=== PATIENT | male | born 1955 | race Caucasian/White ===

== ENCOUNTER 2022-04-25 18:56 | Inpatient (IN) ==
[2022-04-25 20:15] LABS: Basophils # (auto) 0.02 K/uL (0-0.2); Basophils % (auto) 0.3 %; Eosinophils # (auto) 0.22 K/uL (0-0.50); Hematocrit (blood only) 45.1 % (40.1-51.0); Hemoglobin 15.6 g/dl (14.0-18.0); Immature Granulocytes # (auto) 0.01 K/uL (0.00-0.02); Immature Granulocytes % (auto) 0.1 %; Lymphocytes # (auto) 1.98 K/uL (1.2-3.4); Lymphocytes % (auto) 27.2 %; Mean Corpuscular Hemoglobin 34.6 pg (25.0-34.0); Mean Corpuscular Hgb Conc 34.6 g/dL (32.0-36.0); Mean Platelet Volume 10.5 fL (9.4-12.4); Monocytes # (auto) 0.92 K/uL (0.24-0.82); Monocytes % (auto) 12.6 %; Neutrophils # (auto) 4.13 K/uL (1.4-6.5); Neutrophils % (auto) 56.8 %; Platelet Count 201 K/uL (130-400); RDW Coefficient of Variation 12.2 % (11.5-14.5); RDW Standard Deviation 45.4 fL (36.4-46.3); Red Blood Count 4.51 M/uL (4.63-6.08); White Blood Count 7.28 K/ul (4.8-10.8)
[2022-04-25] MEDS ORDERED: levETIRAcetam 1,000 MG in 0.9 % SODIUM CHLORIDE 100 ML IV STA (20:16)
--- NOTE | 2022-04-25 20:20 | CT Scan Report ---
CT OF THE HEAD WITHOUT CONTRAST CLINICAL HISTORY: recurrent seizures COMPARISON STUDY: No previous studies for comparison. CT DOSE: 537.48 mGy.cm TECHNIQUE: Helical axial images of the head were obtained without IV contrast. Automated exposure con trol was utilized for the study. A dose lowering technique was utilized adhering to the principles o f ALARA. FINDINGS: No acute intracranial hemorrhage, midline shift or mass effect is present. The ventricular system is unremarkable. The basal cisterns are patent. No extra-axial collections are present. There are no findings to suggest acute dural sinus thrombosis or acute territorial infarct. No significant calvarial abnormalities are present. Small amount of secretions within visualized portions of the rig ht maxillary sinus. There is moderate ethmoid sinus mucosal thickening. IMPRESSION: No acute intracranial findings. ACT 112: Negative or not required by law. Electronically signed by: Bennie Haywood M.D. 04/25/2022 8:17 PM
[2022-04-25] MEDS ORDERED: LORazepam 2 MG/1 ML VIAL ONE (20:21)
--- NOTE | 2022-04-25 20:25 | Emergency Department Note ---
History of Present Illness General Chief complaint: Seizure Stated complaint: SEIZURE Time Seen by Provider: 04/25/22 19:09 Source: patient Mode of arrival: EMS Limitations: no limitations History of Present Illness Provider complaint: Seizure This is a 67-year-old male presents emergency department due to a seizure today. Patient states he does have a history of seizures and does take Keppra daily. He states he was first diagnosed 2 years ago. Patient states he did have a brief seizure yesterday, but otherwise felt well. He states he went home last night and took an Ambien, his gave him a small amount of Xanax, however he had difficulty sleeping and estimates he only slept 4-1/2 hours. He states t minh he otherwise felt well, did a lot of walking outside. He states he did have a couple of beers with friends. He states then this evening he had a recurrent seizure. He states he does get a strange feeling that something is about to happen. He denies trauma or injury. He denies any recent illness or fevers. Pt seen during a time of high acuity and national emergency pandemic while wearing PPE. Home Medications Medication Instructions Recorded Confirmed Type aspirin 81 mg capsule 162 mg PO DAILY 04/25/22 04/25/22 History cyanocobalamin (vitamin B-12) 100 0 mcg PO DAILY 04/25/22 04/25/22 History mcg tablet (Vitamin B-12) duloxetine 60 mg capsule,delayed 60 mg PO DAILY 04/25/22 04/25/22 History release (Cymbalta) ezetimibe 10 mg tablet (Zetia) 10 mg PO DAILY 04/25/22 04/25/22 History levetiracetam 750 mg tablet 750 mg PO BID 04/25/22 04/25/22 History (Keppra) metoprolol tartrate 50 mg tablet 50 mg PO BID 04/25/22 04/25/22 History (Lopressor) multivitamin 1 tab PO DAILY 04/25/22 04/25/22 History rosuvastatin 20 mg tablet (Crestor) 20 mg PO DAILY 04/25/22 04/25/22 History vitamin B complex 1 tab PO DAILY 04/25/22 04/25/22 History Allergies Allergy/AdvReac Type Severity Reaction Status Date / Time No Known Allergies Allergy Unverified 04/25/22 23:50 Past Med/Surg History Medical History Alcohol use disorder Borderline results on serologic testing for Lyme disease Seizure disorder Social History Smoking Status: Current every day smoker Tobacco Type: Cigarettes Cigarettes Per Day: a couple; Hx Alcohol Use: Yes Alcohol type: hard liquor Hx Substance Use: No Preferred Language: Serbian Communication Ability: Effective Alligator Hunter Required: No Beliefs That Will Affect Care: None Current Living Situation: Spouse Feels Safe at Home: Yes Assistive Devices: Glasses Review of Systems A total of 10 systems reviewed and were otherwise negative All systems reviewed & are unremarkable except as noted in HPI & below Physical Exam Vital Signs Vital Signs - 24 hr 04/25/22 19:08 04/25/22 19:11 04/25/22 19:30 Temperature 36.9 C Temperature Source Oral Pulse Rate 109 H 105 H Pulse Rate [Apical] Pulse Rate from SpO2 Sensor 106 H Pulse Rhythm Regular Pulse Rhythm [Apical] Pulse Strength Normal Pulse Strength [Apical] Respiratory Rate 19 34 H Respiratory Effort / Characteristics Non-Labored Respiratory Depth Normal Respiratory Pattern Regular Blood Pressure 158/108 H 162/104 H Blood Pressure [Right Arm] Blood Pressure Mean 124 123 Blood Pressure Mean [Right Arm] Blood Pressure Position Sitting Blood Pressure Position [Right Arm] Pulse Oximetry 97 97 Oxygen Delivery Method Room Air Sepsis Recent Fever Within 48 Hours No Sepsis New/Unexplained Change in Mental Status No Sepsis Action Taken by Nursing No Action Required 04/25/22 19:30 04/25/22 20:07 04/25/22 20:15 Temperature Temperature Source Pulse Rate 113 H 98 H Pulse Rate [Apical] Pulse Rate from SpO2 Sensor 112 H 89 98 H Pulse Rhythm Pulse Rhythm [Apical] Pulse Strength Pulse Strength [Apical] Respiratory Rate 16 16 Respiratory Effort / Characteristics Respiratory Depth Respiratory Pattern Blood Pressure Blood Pressure [Right Arm] Blood Pressure Mean Blood Pressure Mean [Right Arm] Blood Pressure Position Blood Pressure Position [Right Arm] Pulse Oximetry 99 98 100 Oxygen Delivery Method Sepsis Recent Fever Within 48 Hours Sepsis New/Unexplained Change in Mental Status Sepsis Action Taken by Nursing 04/25/22 20:15 04/25/22 20:30 04/25/22 20:30 Temperature Temperature Source Pulse Rate 94 H Pulse Rate [Apical] Pulse Rate from SpO2 Sensor 93 H Pulse Rhythm Pulse Rhythm [Apical] Pulse Strength Pulse Strength [Apical] Respiratory Rate 13 Respiratory Effort / Characteristics Respiratory Depth Respiratory Pattern Blood Pressure 152/92 H 142/87 H Blood Pressure [Right Arm] Blood Pressure Mean 112 105 Blood Pressure Mean [Right Arm] Blood Pressure Position Blood Pressure Position [Right Arm] Pulse Oximetry 94 Oxygen Delivery Method Sepsis Recent Fever Within 48 Hours Sepsis New/Unexplained Change in Mental Status Sepsis Action Taken by Nursing 04/25/22 19:07 04/25/22 19:07 04/25/22 21:00 Temperature Temperature Source Pulse Rate Pulse Rate [Apical] 87 Pulse Rate from SpO2 Sensor Pulse Rhythm Pulse Rhythm [Apical] Regular Pulse Strength Pulse Strength [Apical] Normal Respiratory Rate 22 Respiratory Effort / Characteristics Non-Labored Respiratory Depth Normal Respiratory Pattern Regular Blood Pressure 127/73 Blood Pressure [Right Arm] 127/73 Blood Pressure Mean 91 Blood Pressure Mean [Right Arm] 91 Blood Pressure Position Blood Pressure Position [Right Arm] Lying Pulse Oximetry 95 95 Oxygen Delivery Method Room Air Room Air Sepsis Recent Fever Within 48 Hours Sepsis New/Unexplained Change in Mental Status Sepsis Action Taken by Nursing 04/25/22 21:00 04/25/22 21:30 04/25/22 21:30 Temperature Temperature Source Pulse Rate 91 H 86 Pulse Rate [Apical] Pulse Rate from SpO2 Sensor 91 H 88 Pulse Rhythm Pulse Rhythm [Apical] Pulse Strength Pulse Strength [Apical] Respiratory Rate 14 24 Respiratory Effort / Characteristics Respiratory Depth Respiratory Pattern Blood Pressure 129/77 Blood Pressure [Right Arm] Blood Pressure Mean 94 Blood Pressure Mean [Right Arm] Blood Pressure Position Blood Pressure Position [Right Arm] Pulse Oximetry 95 94 Oxygen Delivery Method Sepsis Recent Fever Within 48 Hours Sepsis New/Unexplained Change in Mental Status Sepsis Action Taken by Nursing 04/25/22 22:00 04/25/22 22:00 04/25/22 22:30 Temperature Temperature Source Pulse Rate 81 Pulse Rate [Apical] Pulse Rate from SpO2 Sensor 80 Pulse Rhythm Pulse Rhythm [Apical] Pulse Strength Pulse Strength [Apical] Respiratory Rate 19 Respiratory Effort / Characteristics Respiratory Depth Respiratory Pattern Blood Pressure 119/75 137/69 Blood Pressure [Right Arm] Blood Pressure Mean 89 91 Blood Pressure Mean [Right Arm] Blood Pressure Position Blood Pressure Position [Right Arm] Pulse Oximetry 94 Oxygen Delivery Method Sepsis Recent Fever Within 48 Hours Sepsis New/Unexplained Change in Mental Status Sepsis Action Taken by Nursing 04/25/22 22:30 04/25/22 23:00 04/25/22 23:00 Temperature Temperature Source Pulse Rate 82 86 Pulse Rate [Apical] Pulse Rate from SpO2 Sensor 82 86 Pulse Rhythm Pulse Rhythm [Apical] Pulse Strength Pulse Strength [Apical] Respiratory Rate 17 20 Respiratory Effort / Characteristics Respiratory Depth Respiratory Pattern Blood Pressure 148/88 H Blood Pressure [Right Arm] Blood Pressure Mean 108 Blood Pressure Mean [Right Arm] Blood Pressure Position Blood Pressure Position [Right Arm] Pulse Oximetry 95 98 Oxygen Delivery Method Sepsis Recent Fever Within 48 Hours Sepsis New/Unexplained Change in Mental Status Sepsis Action Taken by Nursing 04/25/22 23:30 04/25/22 23:30 04/26/22 00:00 Temperature Temperature Source Pulse Rate 75 Pulse Rate [Apical] Pulse Rate from SpO2 Sensor 75 Pulse Rhythm Pulse Rhythm [Apical] Pulse Strength Pulse Strength [Apical] Respiratory Rate 19 Respiratory Effort / Characteristics Respiratory Depth Respiratory Pattern Blood Pressure 127/83 144/75 H Blood Pressure [Right Arm] Blood Pressure Mean 97 98 Blood Pressure Mean [Right Arm] Blood Pressure Position Blood Pressure Position [Right Arm] Pulse Oximetry 93 Oxygen Delivery Method Sepsis Recent Fever Within 48 Hours Sepsis New/Unexplained Change in Mental Status Sepsis Action Taken by Nursing 04/26/22 00:00 04/26/22 00:30 04/26/22 00:30 Temperature Temperature Source Pulse Rate 75 74 Pulse Rate [Apical] Pulse Rate from SpO2 Sensor 75 74 Pulse Rhythm Pulse Rhythm [Apical] Pulse Strength Pulse Strength [Apical] Respiratory Rate 16 15 Respiratory Effort / Characteristics Respiratory Depth Respiratory Pattern Blood Pressure 115/76 Blood Pressure [Right Arm] Blood Pressure Mean 89 Blood Pressure Mean [Right Arm] Blood Pressure Position Blood Pressure Position [Right Arm] Pulse Oximetry 96 93 Oxygen Delivery Method Sepsis Recent Fever Within 48 Hours Sepsis New/Unexplained Change in Mental Status Sepsis Action Taken by Nursing GENERAL: alert, well appearing, well nourished, no distress, non-toxic EYE EXAM: normal conjunctiva, PERRL and EOM's grossly intact OROPHARYNX: no exudate, no erythema, lips, buccal mucosa, and tongue normal and mucous membranes are moist NECK: supple, no nuchal rigidity, no adenopathy, non-tender LUNGS: Clear to auscultation. Normal chest wall mechanics, no w/r/r HEART: no murmurs, S1 normal and S2 normal ABDOMEN: abdomen soft, non-tender, normo-active bowel sounds, no masses, no rebound or guarding. BACK: Back is symmetrical on inspection and there is no deformity, no midline tenderness, no CVA tenderness. SKIN: no rashes and no bruising UPPER EXTREMITIES: upper extremities are grossly normal. FROM, nml pulses b/l. LOWER EXTREMITIES: No pitting edema. FROM, nml pulses b/l. NEURO EXAM: Normal sensorium, cranial nerves II-XII grossly intact, normal speech, no gross weakness of arms, no gross weakness of legs. Gross sensation intact. Course Course 2020: Notified by nursing staff pt now having a seizure. By the time I entered the room seizure activity had stopped and pt was slowly beginning to respond. No post ictal period. Ativan ordered and given. 2131: Pt updated. VS stable. Patient and admit patient has had prior issues with alcohol abuse and has previously attended rehab. He had never had seizures related to alcohol withdrawal previously. No history of DTs. Administered Medications Doxycycline Hyclate (Doxycycline Hyclate 100 Mg Cap) 100 mg PO BID MARCELLUS Stop: 05/06/22 01:50 Last Admin: 04/26/22 20:15 Dose: 100 mg Documented By: Admin: 04/26/22 08:58 Dose: 100 mg Documented By: [id number] Admin: 04/26/22 03:04 Dose: 100 mg Documented By: JODY Enoxaparin Sodium (Enoxaparin Inj 40 Mg/0.4 Ml Syr) 40 mg SQ Q24H MARCELLUS Stop: 05/26/22 08:59 Last Admin: 04/26/22 08:58 Dose: 40 mg Documented By: [id number] Folic Acid (Folic Acid 1 Mg Tab) 1 mg PO QAM MARCELLUS Stop: 05/26/22 01:50 Last Admin: 04/26/22 08:58 Dose: 1 mg Documented By: [id number] Admin: 04/26/22 03:03 Dose: 1 mg Documented By: JODY Levetiracetam (Levetiracetam 500 Mg Tab) 1,000 mg PO BID MARCELLUS Stop: 05/26/22 08:59 Last Admin: 04/26/22 20:15 Dose: 1,000 mg Documented By: Admin: 04/26/22 08:58 Dose: 1,000 mg Documented By: [id number] Metoprolol Tartrate (Metoprolol Tartrate 50 Mg Tab) 50 mg PO BID MARCELLUS Stop: 05/26/22 12:14 Last Admin: 04/26/22 20:15 Dose: 50 mg Documented By: Admin: 04/26/22 13:09 Dose: 50 mg Documented By: [id number] Thiamine HCl (Thiamine Hcl 100 Mg Tab) 100 mg PO QAM MARCELLUS Stop: 05/26/22 01:50 Last Admin: 04/26/22 08:58 Dose: 100 mg Documented By: [id number] Admin: 04/26/22 03:05 Dose: 100 mg Documented By: JODY Discontinued Medications Levetiracetam 1,000 mg/ Sodium (Chloride) 110 mls @ 440 mls/hr IV NOW STA Stop: 04/25/22 20:30 Last Infusion: 04/25/22 21:22 Dose: 0 mls/hr Documented By: Admin: 04/25/22 20:57 Dose: 440 mls/hr Documented By: GLORIA Multivitamins 10 ml/ Thiamine HCl 100 mg/ Folic Acid 1 mg/Sodium Chloride 1,011.2 mls @ 500 mls/hr IV .Q2H2M ONE Stop: 04/26/22 04:16 Last Infusion: 04/26/22 05:04 Dose: 0 mls/hr Documented By: Admin: 04/26/22 03:02 Dose: 500 mls/hr Documented By: JODY Lactated Ringer's (Lr) 1,000 mls @ 80 mls/hr IV .[id number] MARCELLUS Stop: 04/26/22 16:44 Last Infusion: 04/26/22 18:05 Dose: 0 mls/hr Documented By: [id number] Admin: 04/26/22 05:34 Dose: 80 mls/hr Documented By: JODY Lorazepam (Lorazepam 2 Mg/1 Ml Vial) Confirm Administered Dose 2 mg .ROUTE .STK- MED ONE Stop: 04/25/22 20:22 Last Admin: 04/25/22 20:23 Dose: 1 mg Documented By: GLORIA Metoprolol Tartrate (Metoprolol Tartrate 50 Mg Tab) 50 mg PO NOW STA Stop: 04/25/22 23:08 Last Admin: 04/25/22 23:37 Dose: 50 mg Documented By: GENEVIEVE Medical Decision Making Differential Diagnosis Differential diagnosis includes etiologies such as infection, hypoglycemia, neymar ctrolyte abnormalities, cardiac sources, intracerebral event, trauma, toxicologic, neurologic, as well as others were entertained. Medical Records Attestation: I reviewed the patient's medical records. Home Medications Current Medication List: was personally reviewed by me Laboratory Data Attestation: I reviewed the patient's lab results. Result diagrams: 04/26/22 05:50 04/26/22 05:50 Lab Results 04/25/22 04/25/22 04/25/22 Range/Units 19:03 19:25 19:25 WBC 7.28 (4.8-10.8) K/ul RBC 4.51 L (4.63-6.08) M/uL Hgb 15.6 (14.0-18.0) g/dl Hct 45.1 (40.1-51.0) % MCV 100.0 (80.0-100.0) fL MCH 34.6 H (25.0-34.0) pg MCHC 34.6 (32.0-36.0) g/dL RDW Std Deviation 45.4 (36.4-46.3) fL RDW Coeff of Eladia 12.2 (11.5-14.5) % Plt Count 201 (130-400) K/uL MPV 10.5 (9.4-12.4) fL Immature Gran % (Auto) 0.1 % Neut % (Auto) 56.8 % Lymph % (Auto) 27.2 % [place] % (Auto) 12.6 % Eos % (Auto) 3.0 % Baso % (Auto) 0.3 % Neut # (Auto) 4.13 (1.4-6.5) K/uL Lymph # (Auto) 1.98 (1.2-3.4) K/uL [place] # (Auto) 0.92 H (0.24-0.82) K/uL Eos # (Auto) 0.22 (0-0.50) K/uL Baso # (Auto) 0.02 (0-0.2) K/uL Immature Gran # (Auto) 0.01 (0.00-0.02) K/uL Sodium 137 (136-145) mmol/L Potassium 4.4 (3.5-5.1) mmol/L Chloride 106 (98-107) mmol/L Carbon Dioxide 20 L (21-32) mmol/L Anion Gap 11 (3-11) BUN 17 (6-23) mg/dl Creatinine 1.03 (0.6-1.4) mg/dl Est Cr Clr Drug Dosing 77.5 ml/min Est GFR ( Amer) 87.9 ml/min Est GFR (Non-Af Amer) 75.9 ml/min BUN/Creatinine Ratio 16.5 (10-20) Glucose 88 (70-99(Fasting)) mg/dl POC Glucose 98 (70-99) mg/dl Calcium 10.0 (8.5-10.1) mg/dl Magnesium 2.2 (1.7-2.4) mg/dl Total Bilirubin 0.5 (0.2-1.0) mg/dl AST 42 H (13-39) U/L ALT 47 (7-52) U/L Alkaline Phosphatase 79 (34-104) U/L Troponin I High Sens 6.2 (0-20) pg/ml Total Protein 7.9 (6.0-8.3) gm/dl Albumin 4.8 (3.4-5.0) gm/dl Globulin 3.1 (2.5-4.0) gm/dl Albumin/Globulin Ratio 1.5 (0.9-2) Lipase 73 (11-82) U/L TSH (0.300-4.500) uIu/ml Ethyl Alcohol mg/dL (<10.0) mg/dl Lyme Disease IgG Ab (Negative) Lyme Disease IgM Ab (Negative) 04/25/22 04/25/22 04/25/22 Range/Units 19:25 19:25 19:25 WBC (4.8-10.8) K/ul RBC (4.63-6.08) M/uL Hgb (14.0-18.0) g/dl Hct (40.1-51.0) % MCV (80.0-100.0) fL MCH (25.0-34.0) pg MCHC (32.0-36.0) g/dL RDW Std Deviation (36.4-46.3) fL RDW Coeff of Eladia (11.5-14.5) % Plt Count (130-400) K/uL MPV (9.4-12.4) fL Immature Gran % (Auto) % Neut % (Auto) % Lymph % (Auto) % [place] % (Auto) % Eos % (Auto) % Baso % (Auto) % Neut # (Auto) (1.4-6.5) K/uL Lymph # (Auto) (1.2-3.4) K/uL [place] # (Auto) (0.24-0.82) K/uL Eos # (Auto) (0-0.50) K/uL Baso # (Auto) (0-0.2) K/uL Immature Gran # (Auto) (0.00-0.02) K/uL Sodium (136-145) mmol/L Potassium (3.5-5.1) mmol/L Chloride (98-107) mmol/L Carbon Dioxide (21-32) mmol/L Anion Gap (3-11) BUN (6-23) mg/dl Creatinine (0.6-1.4) mg/dl Est Cr Clr Drug Dosing ml/min Est GFR ( Amer) ml/min Est GFR (Non-Af Amer) ml/min BUN/Creatinine Ratio (10-20) Glucose (70-99(Fasting)) mg/dl POC Glucose (70-99) mg/dl Calcium (8.5-10.1) mg/dl Magnesium (1.7-2.4) mg/dl Total Bilirubin (0.2-1.0) mg/dl AST (13-39) U/L ALT (7-52) U/L Alkaline Phosphatase (34-104) U/L Troponin I High Sens (0-20) pg/ml Total Protein (6.0-8.3) gm/dl Albumin (3.4-5.0) gm/dl Globulin (2.5-4.0) gm/dl Albumin/Globulin Ratio (0.9-2) Lipase (11-82) U/L TSH 1.317 (0.300-4.500) uIu/ml Ethyl Alcohol mg/dL 11.2 H (<10.0) mg/dl Lyme Disease IgG Ab Negative (Negative) Lyme Disease IgM Ab Equivocal A (Negative) Imaging Data Radiologist's Impression: Head CT 04/25/22 19:44 CT OF THE HEAD WITHOUT CONTRAST CLINICAL HISTORY: recurrent seizures COMPARISON STUDY: No previous studies for comparison. CT DOSE: 537.48 mGy.cm TECHNIQUE: Helical axial images of the head were obtained without IV contrast. Automated exposure control was utilized for the study. A dose lowering technique was utilized adhering to the principles of ALARA. FINDINGS: No acute intracranial hemorrhage, midline shift or mass effect is present. The ventricular system is unremarkable. The basal cisterns are patent. No extra-axial collections are present. There are no findings to suggest acute dural sinus thrombosis or acute territorial infarct. No significant calvarial abnormalities are present. Small amount of secretions within visualized portions of the right maxillary sinus. There is moderate ethmoid sinus mucosal thickening. IMPRESSION: No acute intracranial findings. ACT 112: Negative or not required by law. Electronically signed by: Bennie Haywood M.D. 04/25/2022 8:17 PM ECG Data Attestation: I personally reviewed and interpreted this ECG as follows: Indication: + other Rate (beats per minute): 95 Rhythm: + normal sinus ECG Intervals/blocks: + Normal QRS and + Normal QT ECG [place]: + Normal ECG ST segments: + Normal ST segments MDM Narrative An order was placed for continuous cardiac monitoring. The monitor shows a rate of _75_ with _normal sinus__ rhythm. This is a 67-year-old male who presents due to concern for recurrent seizures yesterday and today. Patient does have a history of seizures and does take Keppra daily, he states he has not missed any doses. Patient did admit to alcohol use today, denies any recent illness, fevers, or trauma. Patient did have a seizure while in the emergency department although by the time I arrived in the room it had resolved, and patient did not appear to be having any typical postictal period. Patient was hemodynamically stable throughout, no ectopy or dysrhythmia noted. Labs reassuring. Patient did admit to poor sleep last night. He is unclear which of several things could have triggered recurrent seizures. Case discussed with hospitalist for additional evaluation and treatment. Do not suspect occult infectious etiology, no significant electrolyte abnormality. Impression & Plan Recurrent seizures, Alcohol use disorder Discharge Plan Visit Data Chief Complaint: Seizure Stated Complaint: SEIZURE ED Provider: Caro Dela Cruz Discharge Problem: Recurrent seizures, Alcohol use disorder Patient Disposition: Admitted As Inpatient Discharge Instructions Interventions: ED Discharge Assessment Last Done: 04/26/22 01:20
[2022-04-25 20:42] LABS: Troponin I High Sensitivity 6.2 pg/ml (0-20)
[2022-04-25 20:47] LABS: Lyme Ab IgG w/WB Rflx Negative (Negative)
[2022-04-25 20:48] LABS: Albumin Globulin Ratio 1.5 (0.9-2); Albumin Level 4.8 gm/dl (3.4-5.0); BUN Creatinine Ratio 16.5 (10-20); Bilirubin,Total 0.5 mg/dl (0.2-1.0); Creatinine Clr Calc Pharmacy 77.5 ml/min; Est GFR (African American) 87.9 ml/min; Est GFR (Non-African American) 75.9 ml/min; Globulin 3.1 gm/dl (2.5-4.0); Magnesium 2.2 mg/dl (1.7-2.4); Potassium 4.4 mmol/L (3.5-5.1); Total Protein 7.9 gm/dl (6.0-8.3)
[2022-04-25 20:58] LABS: Lyme Ab IgM w/WB Rflx Equivocal (Negative)
--- NOTE | 2022-04-25 22:45 | History & Physical Report ---
Date of Service April 25, 2022 Assessment & Plan (1) Alcohol use disorder: Plan: Eze Lyle is a 67-year-old male with a past medical history of seizure disorder diagnosed 2 years ago and alcohol use disorder who presented due to seizures. Seizures With a history of seizure disorder diagnosed 2 years ago Unclear cause for these recent episodes, though certainly alcohol withdrawal and/or intake could be contributors Patient takes Keppra 750 mg p.o. twice daily at home Received Keppra 1000 mg IV x1 in ED Will continue Keppra 1000 mg p.o. twice daily at this time Seizure precautions Consider neurology consult if etiology remains unclear or seizures recur Monitor metabolic panel in a.m. Alcohol use disorder concern for possible alcohol withdrawal Patient stating that before his first seizure yesterday his last drink had been about 8 or 9 days ago this would make it less likely that his seizure would have been caused by alcohol withdrawal Regardless patient did admit to further alcohol intake after the first seizure Ethyl alcohol level at 11.2 on admission Will institute active AWSS protocol as needed IV Ativan Ordered banana bag, daily thiamine and folate Measure thiamine, B12 levels ?Lyme disease Equivocal Lyme IgM testing on admission Western blot now pending for confirmation Patient does not recall particular tick bites but does live in [place] Less likely that Lyme disease would have been asymptomatic prior to affecting him neurologically However, with equivocal test results will start on doxycycline 100 mg p.o. twice daily empirically If Western blot negative, can discontinue antibiotic DVT prophylaxis: Lovenox SQ Diet: Heart healthy Dispo: Admit to telemetry CODE STATUS: Full (2) Seizure disorder: (3) Borderline results on serologic testing for Lyme disease: History of Present Illness Primary Care Provider: NO PCP Eze Lyle is a 67-year-old male with a past medical history of seizure disorder diagnosed 2 years ago and alcohol use disorder who presented due to seizures. The patient is from [facility], visiting for football game. Patient states that he had a seizure last night while he was standing up talking to a friend. His was able to identify that he was having a seizure and gave him a small piece of her 0.25 mg Xanax. Patient was then able to recover without much issue and when he got to where he was staying took an Ambien at around 10 PM. He states despite this he was unable to go to sleep until 2 AM. He woke up today feeling overall well and was tailgating for the football game. He states he walked a lot today. While tailgating, he states he developed another seizure. At that point patient was brought to ED for evaluation. Patient does state that he has a history of alcohol use disorder and was recently in rehabilitation. He states that this was "a $25,000 waste of time". He mentions that he had last had a drink about 9 days ago. Admits that when he developed seizures yesterday he and his agreed that alcohol withdrawal could be a concern and so he had 1 beer to try to prevent this. He further admits that he then [facility] his second seizure. He does take Keppra 750 mg twice daily. States he was diagnosed with seizure disorder about 2 years ago and saw a neurologist, and has since only seen his neurologist via Zoom twice. In the ED patient was given Keppra 1000 mg x 1. He apparently experienced repeat seizure activity in the ED around 8:54 PM. ED provider was called to bedside and Ativan 2 mg x 1 was administered. Lab work was overall unremarkable, ethyl alcohol level was found to be 11.2. He did have equivocal Lyme IgM testing with negative Lyme IgG. Lyme Western blot now pending. Head CT was negative for acute findings. At this time, the patient is feeling well and states that he just hopes to be able to get some rest. Denies headache, dizziness, nausea, vomiting, chest pain, palpitations, cough, shortness of breath, abdominal pain, weakness, numbness, tingling, fever, chills. Allergies Allergy/AdvReac Type Severity Reaction Status Date / Time No Known Allergies Allergy Unverified 04/25/22 23:50 Home Medications Medication Instructions Recorded Confirmed Type aspirin 81 mg capsule 162 mg PO DAILY 04/25/22 04/25/22 History cyanocobalamin (vitamin B-12) 100 0 mcg PO DAILY 04/25/22 04/25/22 History mcg tablet (Vitamin B-12) duloxetine 60 mg capsule,delayed 60 mg PO DAILY 04/25/22 04/25/22 History release (Cymbalta) ezetimibe 10 mg tablet (Zetia) 10 mg PO DAILY 04/25/22 04/25/22 History levetiracetam 750 mg tablet 750 mg PO BID 04/25/22 04/25/22 History (Keppra) metoprolol tartrate 50 mg tablet 50 mg PO BID 04/25/22 04/25/22 History (Lopressor) multivitamin 1 tab PO DAILY 04/25/22 04/25/22 History rosuvastatin 20 mg tablet (Crestor) 20 mg PO DAILY 04/25/22 04/25/22 History vitamin B complex 1 tab PO DAILY 04/25/22 04/25/22 History Past Med/Surg History Medical History Alcohol use disorder Borderline results on serologic testing for Lyme disease Seizure disorder Social History Smoking Status: Current some day smoker Tobacco Type: Cigarettes Feels Safe at Home: Yes Review of Systems Review of Systems: Per HPI Physical Exam Physical Exam: GENERAL: A&Ox3. NAD. HEENT: PERRL, EOMI. Moist mucous membranes. NECK: No JVD. No lymphadenopathy. CHEST/LUNGS: CTAB A/P. No crackles, wheezes, rales, rhonchi. HEART: RRR. No m/g/r. No carotid bruits. ABDOMEN: NT/ND, soft. BS+ x4 EXTREMITIES: No cyanosis, no clubbing, no edema SKIN: Warm and dry. No rashes or lesions. PSYCHIATRIC: Euthymic affect, no SI, no pressured speech, no hallucinations NEUROLOGIC: No FND. CN II-XII grossly intact. Results & Data Results & Data ([facility]) Vital Signs (Past 12 Hours) Vital Signs Temp Pulse Pulse Resp BP BP Pulse Ox 04/25/22 21:30 86 24 94 04/25/22 21:30 129/77 04/25/22 21:00 91 H 14 95 04/25/22 21:00 127/73 04/25/22 19:07 87 22 127/73 95 04/25/22 19:07 95 04/25/22 20:30 94 H 13 94 04/25/22 20:30 142/87 H 04/25/22 20:15 152/92 H 04/25/22 20:15 98 H 16 100 04/25/22 20:07 98 04/25/22 19:30 113 H 16 99 04/25/22 19:30 162/104 H 04/25/22 19:11 105 H 34 H 97 04/25/22 19:08 36.9 C 109 H 19 158/108 H 97 O2 Del Method 04/25/22 21:30 04/25/22 21:30 04/25/22 21:00 04/25/22 21:00 04/25/22 19:07 Room Air 04/25/22 19:07 Room Air 04/25/22 20:30 04/25/22 20:30 04/25/22 20:15 04/25/22 20:15 04/25/22 20:07 04/25/22 19:30 04/25/22 19:30 04/25/22 19:11 04/25/22 19:08 Room Air Laboratory Results Laboratory Results WBC 7.28 K/ul (4.8-10.8) 04/25/22 19:25 RBC 4.51 M/uL (4.63-6.08) L 04/25/22 19:25 Hgb 15.6 g/dl (14.0-18.0) 04/25/22 19:25 Hct 45.1 % (40.1-51.0) 04/25/22 19:25 MCV 100.0 fL (80.0-100.0) 04/25/22 19: MCH 34.6 pg (25.0-34.0) H 04/25/22 19: MCHC 34.6 g/dL (32.0-36.0) 04/25/22 19:25 RDW Std Deviation 45.4 fL (36.4-46.3) 04/25/22:25 RDW Coeff of Eladia 12.2 % (11.5-14.5) 04/25/22 19:25 Plt Count 201 K/uL (130-400) 04/25/22 19:25 MPV 10.5 fL (9.4-12.4) 04/25/22 19:25 Immature Gran % (Auto) 0.1 % 04/25/22 19:25 Neut % (Auto) 56.8 % 04/25/22:25 Lymph % (Auto) 27.2 % 04/25/22:25 Menard % (Auto) 12.6 % 04/25/22:25 Eos % (Auto) 3.0 % 09/10/22 19:25 Baso % (Auto) 0.3 % 04/25/22 19:25 Neut # (Auto) 4.13 K/uL (1.4-6.5) 04/25/22 19:25 Lymph # (Auto) 1.98 K/uL (1.2-3.4) 04/25/22 19:25 Menard # (Auto) 0.92 K/uL (0.24-0.82) H 04/25/22 19:25 Eos # (Auto) 0.22 K/uL (0-0.50) 04/25/22 19:25 Baso # (Auto) 0.02 K/uL (0-0.2) 04/25/22 19:25 Immature Gran # (Auto) 0.01 K/uL (0.00-0.02) 04/25/22 19:25 Sodium 137 mmol/L (136-145) 04/25/22 19:25 Potassium 4.4 mmol/L (3.5-5.1) 04/25/22 19:25 Chloride 106 mmol/L (98-107) 04/25/22 19:25 Carbon Dioxide 20 mmol/L (21-32) L 04/25/22 19:25 Anion Gap 11 (3-11) 04/25/22 19:25 BUN 17 mg/dl (6-23) 04/25/22 19:25 Creatinine 1.03 mg/dl (0.6-1.4) 04/25/22 19:25 Est Cr Clr Drug Dosing 77.5 ml/min 04/25/22 19:25 Est GFR ( Amer) 87.9 ml/min 04/25/22 19:25 Est GFR (Non-Af Amer) 75.9 ml/min 04/25/22 19:25 BUN/Creatinine Ratio 16.5 (10-20) 04/25/22 19:25 Glucose 88 mg/dl (70-99(Fasting)) 04/25/22 19:25 POC Glucose 98 mg/dl (70-99) 04/25/22 19:03 Calcium 10.0 mg/dl (8.5-10.1) 04/25/22:25 Magnesium 2.2 mg/dl (1.7-2.4) 04/25/22 19:25 Total Bilirubin 0.5 mg/dl (0.2-1.0) 04/25/22 19:25 AST 42 U/L (13-39) H 04/25/22 19:25 ALT 47 U/L (7-52) 04/25/22 19:25 Alkaline Phosphatase 79 U/L (34-104) 04/25/22 19:25 Troponin I High Sens 6.2 pg/ml (0-20) 04/25/22 19:25 Total Protein 7.9 gm/dl (6.0-8.3) 04/25/22 19:25 Albumin 4.8 gm/dl (3.4-5.0) 04/25/22 19:25 Globulin 3.1 gm/dl (2.5-4.0) 04/25/22 19:25 Albumin/Globulin Ratio 1.5 (0.9-2) 04/25/22 19:25 Lipase 73 U/L (11-82) 04/25/22 19:25 TSH 1.317 uIu/ml (0.300-4.500) 04/25/22 19:25 Ethyl Alcohol mg/dL 11.2 mg/dl (<10.0) H 04/25/22 19:25 Lyme Disease IgG Ab Negative (Negative) 04/25/22 19:25 Lyme Disease IgM Ab Equivocal (Negative) A 04/25/22 19:25 SARS-CoV-2, RNA, NAAT NEGATIVE (NEGATIVE) 04/25/22 23:[address] 04/25/22 19:44 CT OF THE HEAD WITHOUT CONTRAST CLINICAL HISTORY: recurrent seizures COMPARISON STUDY: No previous studies for comparison. CT DOSE: 537.48 mGy.cm TECHNIQUE: Helical axial images of the head were obtained without IV contrast. Automated exposure control was utilized for the study. A dose lowering technique was utilized adhering to the principles of ALARA. FINDINGS: No acute intracranial hemorrhage, midline shift or mass effect is present. The ventricular system is unremarkable. The basal cisterns are patent. No extra-axial collections are present. There are no findings to suggest acute dural sinus thrombosis or acute territorial infarct. No significant calvarial abnormalities are present. Small amount of secretions within visualized portions of the right maxillary sinus. There is moderate ethmoid sinus mucosal thickening. IMPRESSION: No acute intracranial findings. ACT 112: Negative or not required by law. Electronically signed by: Bennie Haywood M.D. 04/25/2022 8:17 PM Supervising Physician Co-Signing Physician Notes Patient seen and examined, chart reviewed, case discussed with Dr. Phillips and I agree with the assessment and plan as documented above. In brief, patient is a 67-year-old male with history of prior seizure presently on Keppra 750 mg p.o. twice daily, history of alcohol use disorder status post rehab presenting with seizure x3. Patient reports that his last drink prior to today's approximately 9 days ago. He admits to drinking too much in the past and identifies as an alcoholic. He made the decision to quit drinking due to to family strifestates that he lost his relationship with his daughter and his relationship with his is very strained. Seizure today question withdrawal seizure versus alcohol induced seizure. Uncertain of patient's underlying seizure disorder is alcohol related. He reports he is compliant with Keppra with no missed doses On physical exam he is afebrile, hemodynamic stable, nontoxic in appearance HEENTnormocephalic/atraumatic, pupils equal round and reactive, neck supple, moist mucous membranes Heart+ S1, S2, regular, no murmur/rub/gallops Lungsclear to auscultation with no rales/rhonchi/wheezes Abdomenpositive bowel sounds, soft, nontender, nondistended Extremitieswarm, well-perfused Neurogrossly nonfocal Labs and images reviewed Assessment/[id number] male with history of underlying seizure disorder as well as alcohol use disorder presenting with seizure x2 prior to arrival and witnessed seizure in the ER. Given Ativan. Presently does not appear to be actively withdrawingheart rate = 74, blood pressure is normal patient not t remulous Continue Keppra. Will increase to 1000 mg p.o. twice daily LEIDY S with IV Ativan as needed Equivocal Lyme IgMWill empirically treat with doxycycline pending Western blot results Remainder of plan as above Resident Activity Tracking Resident Involvement: Resident Care Provided Care Provided: Adult Hospital Medicine
[2022-04-25] MEDS: METOPROLOL TARTRATE 50 MG TAB PO STA ×2 (23:32→23:37)
--- NOTE | 2022-04-26 00:54 | Billing Data ---
Date of Service April 26, 2022 Coding Level of Care Code 26785 Initial Inpt Care Lvl 2
[2022-04-26] MEDS ORDERED: POLYETHYLENE (MIRALAX) 17 GM PACK PO PRN (01:51)
[2022-04-26] MEDS ORDERED: ONDANSETRON INJ 2 MG/ML 2 ML VIAL IV PRN (01:51)
[2022-04-26] MEDS ORDERED: Ativan PO Alcohol Withdrawal--Active Protocol PO PRN (01:51)
[2022-04-26] MEDS ORDERED: LORazepam 3 MG in SYRINGE 1.5 ML IV PRN (01:51)
[2022-04-26] MEDS ORDERED: ACETAMINOPHEN 325 MG TAB PO PRN (01:51)
[2022-04-26] MEDS ORDERED: Ativan IV Alcohol Withdrawal--Active Protocol IV PRN (01:51)
[2022-04-26] MEDS ORDERED: LORazepam 2 MG in SYRINGE 1 ML IV PRN (01:51)
[2022-04-26] MEDS ORDERED: LORazepam 1 MG in SYRINGE 0.5 ML IV PRN (01:51)
[2022-04-26] MEDS ORDERED: MULTI-VITAMIN INFUSION 10 ML, THIAMINE HCL 100 MG, FOLIC ACID 1 MG in SODIUM CHLORIDE 0... IV ONE (02:15)
[2022-04-26] MEDS: FOLIC ACID 1 MG TAB PO SCH ×2 (03:03→08:58)
[2022-04-26] MEDS: DOXYCYCLINE HYCLATE 100 MG CAP PO SCH ×3 (03:04→20:15)
[2022-04-26] MEDS: THIAMINE HCL 100 MG TAB PO SCH ×2 (03:05→08:58)
[2022-04-26] MEDS ORDERED: LACTATED RINGER'S 1,000 ML IV SCH (04:15)
[2022-04-26 06:40] LABS: Basophils # (auto) 0.01 K/uL (0-0.2); Basophils % (auto) 0.2 %; Eosinophils # (auto) 0.18 K/uL (0-0.50); Eosinophils % (auto) 4.2 %; Hematocrit (blood only) 41.2 % (40.1-51.0); Immature Granulocytes # (auto) 0.01 K/uL (0.00-0.02); Immature Granulocytes % (auto) 0.2 %; Lymphocytes # (auto) 1.47 K/uL (1.2-3.4); Lymphocytes % (auto) 34.6 %; Mean Corpuscular Hemoglobin 34.7 pg (25.0-34.0); Mean Platelet Volume 10.3 fL (9.4-12.4); Monocytes # (auto) 0.54 K/uL (0.24-0.82); Monocytes % (auto) 12.7 %; Neutrophils # (auto) 2.04 K/uL (1.4-6.5); Neutrophils % (auto) 48.1 %; Platelet Count 158 K/uL (130-400); RDW Coefficient of Variation 12.2 % (11.5-14.5); RDW Standard Deviation 46.3 fL (36.4-46.3); Red Blood Count 4.04 M/uL (4.63-6.08); White Blood Count 4.25 K/ul (4.8-10.8)
--- NOTE | 2022-04-26 07:02 | Hospitalist Progress Note ---
Date of Service April 26, 2022 Assessment & Plan (1) Alcohol use disorder: Plan: Eze Lyle is a 67-year-old male with a past medical history of seizure disorder diagnosed 2 years ago and alcohol use disorder who presented due to seizures. Seizures With a history of seizure disorder diagnosed 2 years ago Unclear cause for these recent episodes, though certainly alcohol withdrawal and/or intake could be contributors Patient takes Keppra 750 mg p.o. twice daily at home - No further seizure activity since episode in the ED yesterday evening Received Keppra 1000 mg IV x1 in ED Keppra dose increased to 1000 mg p.o. twice daily Seizure precautions Alcohol use disorder concern for possible alcohol withdrawal Patient stating that before his first seizure yesterday his last drink had been about 8 or 9 days ago has had withdrawal seizures in the past around 8- 9th day. Patient did admit to further alcohol intake after the first seizure Ethyl alcohol level at 11.2 on admission Will institute active AWSS protocol as needed IV Ativan; has not needed to date; AWSS this morning= 0 Banana bag received - daily thiamine and folate B12 and folate wnl Equivocal lyme titre Equivocal Lyme IgM testing on admission Western blot now pending for confirmation Patient does not recall particular tick bites but does live in [place] Less likely that Lyme disease would have been asymptomatic prior to affecting him neurologically However, with equivocal test results will start on doxycycline 100 mg p.o. twice daily empirically If Western blot negative, will discontinue antibiotic DVT prophylaxis: Lovenox SQ Diet: Heart healthy CODE STATUS: Full (2) Seizure disorder: (3) Borderline results on serologic testing for Lyme disease: Admission and Anticipated Discharge Date Admission Date: April 25, 2022 Supervising Physician Co-Signing Physician Notes Resident Physician Supervision Note: I independently interviewed and examined the patient and verified the coronado h istory and physical, reviewed labs and image studies and agree with resident findings and care plan. Subjective 66 year old male with a past medical history of seizure disorder that was diagnosed 2 years ago and alcohol use disorder. His morning he states that he his feeling well without complaint. He states that prior to this weekend, he had not had a seizure in 10-12 months. He takes the Keppra daily, and has not missed a dose. He states his last drink prior to this weekend was 8 1/2 days ago. Denies headache, fever/chills, nausea, vomiting, tremors. Review of Systems Review of Systems: As per HPI Physical Exam Physical Exam: Constitutional: well-appearing, no acute distress HEENT: NCAT, no conjunctival injection CV: regular rhythm, no murmur appreciated, extremities well-perfused, no LE edema Resp: CTABL, no wheezes/rales/rhonchi appreciated, no increased work of breathing GI: soft, nondistended, nontender, BS normoactive MSK: no gross deformities appreciated, no tremors Skin: warm, dry, no rash appreciated Neuro: alert, oriented, no focal neurologic deficit appreciated Results & Data Results & Data ([facility]) Vital Signs (Past 12 Hours) Vital Signs Temp Pulse Pulse Pulse Resp BP BP 04/26/22 04:39 36.3 C L 67 16 151/84 H 04/26/22 02:05 70 04/26/22 01:40 36.4 C L 69 18 145/86 H 04/26/22 00:30 74 15 04/26/22 00:30 115/76 04/26/22 00:00 75 16 04/26/22 00:00 144/75 H 04/25/22 23:30 75 19 04/25/22 23:30 127/83 04/25/22 23:00 86 20 04/25/22 23:00 148/88 H 04/25/22 22:30 82 17 04/25/22 22:30 137/69 04/25/22 22:00 81 19 04/25/22 22:00 119/75 04/25/22 21:30 86 24 04/25/22 21:30 129/77 04/25/22 21:00 91 H 14 04/25/22 21:00 127/73 04/25/22 19:07 87 22 127/73 04/25/22 19:07 04/25/22 20:30 94 H 13 04/25/22 20:30 142/87 H 04/25/22 20:15 152/92 H 04/25/22 20:15 98 H 16 04/25/22 20:07 04/25/22 19:30 113 H 16 04/25/22 19:30 162/104 H 04/25/22 19:11 105 H 34 H 04/25/22 19:08 36.9 C 109 H 19 158/108 H Pulse Ox O2 Del Method 04/26/22 04:39 96 Room Air 04/26/22 02:05 04/26/22 01:40 97 Room Air 04/26/22 00:30 93 04/26/22 00:30 04/26/22 00:00 96 04/26/22 00:00 04/25/22 23:30 93 04/25/22 23:30 04/25/22 23:00 98 04/25/22 23:00 04/25/22 22:30 95 04/25/22 22:30 04/25/22 22:00 94 04/25/22 22:00 04/25/22 21:30 94 04/25/22 21:30 04/25/22 21:00 95 04/25/22 21:00 04/25/22 19:07 95 Room Air 04/25/22 19:07 95 Room Air 04/25/22 20:30 94 04/25/22 20:30 04/25/22 20:15 04/25/22 20:15 100 04/25/22 20:07 98 04/25/22 19:30 99 04/25/22 19:30 04/25/22 19:11 97 04/25/22 19:08 97 Room Air Resident Activity Tracking Resident Involvement: Resident Care Provided Care Provided: Adult Hospital Medicine
[2022-04-26 07:03] LABS: Albumin Globulin Ratio 1.5 (0.9-2); BUN Creatinine Ratio 18.6 (10-20); Bilirubin,Total 0.8 mg/dl (0.2-1.0); Calcium 9.1 mg/dl (8.5-10.1); Creatinine Clr Calc Pharmacy 116.1 ml/min; Est GFR (African American) 114.8 ml/min; Globulin 2.6 gm/dl (2.5-4.0); Potassium 4.3 mmol/L (3.5-5.1); Total Protein 6.6 gm/dl (6.0-8.3)
[2022-04-26 07:19] LABS: Folate (Folic Acid) > 22.30 ng/ml (>5.38)
[2022-04-26 07:20] LABS: Vitamin B12 867 pg/ml (180-914)
[2022-04-26] MEDS: ENOXAPARIN INJ 40 MG/0.4 ML SYR SQ SCH (08:58)
[2022-04-26] MEDS: levETIRAcetam 500 MG TAB PO SCH ×2 (08:58→20:15)
[2022-04-26] MEDS: METOPROLOL TARTRATE 50 MG TAB PO SCH ×2 (13:09→20:15)
--- NOTE | 2022-04-26 15:05 | Electrocardiogram Report ---
Test Reason : Blood Pressure : / mmHG Vent. Rate : 095 BPM Atrial Rate : 095 BPM P-R Int : 160 ms QRS Dur : 086 ms QT Int : 350 ms P-R-T Axes : 044 003 041 degrees QTc Int : 439 ms Normal sinus rhythm Normal ECG No previous ECGs available Confirmed by Hao Monreal ([id number]) on 04/26/2022 3:05:09 PM Referred By: REFERRED SELF Confirmed By:Hao Monreal
[2022-04-27 05:48] LABS: Basophils # (auto) 0.01 K/uL (0-0.2); Basophils % (auto) 0.2 %; Eosinophils # (auto) 0.14 K/uL (0-0.50); Eosinophils % (auto) 2.4 %; Hematocrit (blood only) 40.8 % (40.1-51.0); Hemoglobin 14.2 g/dl (14.0-18.0); Immature Granulocytes # (auto) 0.01 K/uL (0.00-0.02); Immature Granulocytes % (auto) 0.2 %; Lymphocytes # (auto) 1.45 K/uL (1.2-3.4); Mean Corpuscular Hemoglobin 34.5 pg (25.0-34.0); Mean Corpuscular Hgb Conc 34.8 g/dL (32.0-36.0); Mean Corpuscular Volume 99.3 fL (80.0-100.0); Mean Platelet Volume 10.4 fL (9.4-12.4); Monocytes # (auto) 0.69 K/uL (0.24-0.82); Monocytes % (auto) 11.9 %; Neutrophils # (auto) 3.49 K/uL (1.4-6.5); Neutrophils % (auto) 60.3 %; Platelet Count 166 K/uL (130-400); RDW Coefficient of Variation 11.9 % (11.5-14.5); RDW Standard Deviation 43.4 fL (36.4-46.3); Red Blood Count 4.11 M/uL (4.63-6.08); White Blood Count 5.79 K/ul (4.8-10.8)
[2022-04-27 06:22] LABS: Albumin Globulin Ratio 1.5 (0.9-2); Albumin Level 3.8 gm/dl (3.4-5.0); BUN Creatinine Ratio 15.6 (10-20); Bilirubin,Total 0.5 mg/dl (0.2-1.0); Calcium 9.2 mg/dl (8.5-10.1); Creatinine Clr Calc Pharmacy 126.7 ml/min; Est GFR (African American) 119.1 ml/min; Est GFR (Non-African American) 102.7 ml/min; Globulin 2.5 gm/dl (2.5-4.0); Potassium 4.3 mmol/L (3.5-5.1); Total Protein 6.3 gm/dl (6.0-8.3)
[2022-04-27 07:34] LABS: Amphetamines+Metham, Urine Neg (Neg); Barbiturates, Urine Neg (Neg); Benzodiazepine, Urine Neg (Neg); Cocaine, Urine Neg (Neg); MDMA (Ecstacy), Urine Neg (Neg); Methadone, Urine Neg (Neg); Opiate, Urine Neg (Neg); Phencyclidine, Urine Neg (Neg)
[2022-04-27 08:49] LABS: Appearance Urine Clear (Clear); Bilirubin Urine Negative (Negative); Blood Urine Negative (Negative); Color Urine Yellow; Glucose Urine UA Negative (Negative); Ketones Urine Trace (Negative); Leukocyte Esterase Urine Negative (Negative); Nitrite Urine Negative (Negative); Protein Urine Negative (Negative); Specific Gravity Urine 1.016 (1.000-1.030); Urobilinogen Urine Negative (Negative); pH Urine 6.5 (4.5-7.5)
[2022-04-27] MEDS: DOXYCYCLINE HYCLATE 100 MG CAP PO SCH (08:53)
[2022-04-27] MEDS: ENOXAPARIN INJ 40 MG/0.4 ML SYR SQ SCH (08:53)
[2022-04-27] MEDS: FOLIC ACID 1 MG TAB PO SCH (08:53)
[2022-04-27] MEDS: levETIRAcetam 500 MG TAB PO SCH (08:54)
[2022-04-27] MEDS: THIAMINE HCL 100 MG TAB PO SCH (08:54)
[2022-04-27] MEDS: METOPROLOL TARTRATE 50 MG TAB PO SCH (08:54)
--- NOTE | 2022-04-27 17:17 | Discharge Summary ---
Date of Service April 27, 2022 Admission HPI Per Admitting Provider Eze Lyle is a 67-year-old male with a past medical history of seizure disorder diagnosed 2 years ago and alcohol use disorder who presented due to seizures. The patient is from [facility], visiting for football game. Patient states that he had a seizure last night while he was standing up talking to a friend. His was able to identify that he was having a seizure and gave him a small piece of her 0.25 mg Xanax. Patient was then able to recover without much issue and when he got to where he was staying took an Ambien at around 10 PM. He states despite this he was unable to go to sleep until 2 AM. He woke up today feeling overall well and was tailgating for the football game. He states he walked a lot today. While tailgating, he states he developed another seizure. At that point patient was brought to ED for evaluation. Patient does state that he has a history of alcohol use disorder and was recently in rehabilitation. He states that this was "a $25,000 waste of time". He mentions that he had last had a drink about 9 days ago. Admits that when he developed seizures yesterday he and his agreed that alcohol withdrawal could be a concern and so he had 1 beer to try to prevent this. He further admits that he then had 4-5 beers today at the tailgate before his second seizure. He does take Keppra 750 mg twice daily. States he was diagnosed with seizure disorder about 2 years ago and saw a neurologist, and has since only seen his neurologist via Zoom twice. In the ED patient was given Keppra 1000 mg x 1. He apparently experienced repeat seizure activity in the ED around 8:54 PM. ED provider was called to bedside and Ativan 2 mg x 1 was administered. Lab work was overall unremarkable, ethyl alcohol level was found to be 11.2. He did have equivocal Lyme IgM testing with negative Lyme IgG. Lyme Western blot now pending. Head CT was negative for acute findings. At this time, the patient is feeling well and states that he just hopes to be able to get some rest. Denies headache, dizziness, nausea, vomiting, chest pain, palpitations, cough, shortness of breath, abdominal pain, weakness, numbness, tingling, fever, chills. Admission Exam Per Admitting Provider GENERAL: A&Ox3. NAD. HEENT: PERRL, EOMI. Moist mucous membranes. NECK: No JVD. No lymphadenopathy. CHEST/LUNGS: CTAB A/P. No crackles, wheezes, rales, rhonchi. HEART: RRR. No m/g/r. No carotid bruits. ABDOMEN: NT/ND, soft. BS+ x4 EXTREMITIES: No cyanosis, no clubbing, no edema SKIN: Warm and dry. No rashes or lesions. PSYCHIATRIC: Euthymic affect, no SI, no pressured speech, no hallucinations NEUROLOGIC: No FND. CN II-XII grossly intact. Principal Diagnosis Seizure Discharge Exam Constitutional: well-appearing, no acute distress HEENT: NCAT, no conjunctival injection CV: regular rhythm, no murmur appreciated, extremities well-perfused, no LE edema Resp: CTABL, no wheezes/rales/rhonchi appreciated, no increased work of breathing GI: soft, nondistended, nontender, BS normoactive MSK: no gross deformities appreciated, no tremors Skin: warm, dry, no rash appreciated Neuro: alert, oriented, no focal neurologic deficit appreciated Discharge Data Allergies Allergy/AdvReac Type Severity Reaction Status Date / Time No Known Allergies Allergy Unverified 04/25/22 23:50 Consultations 04/25/22 23:06 ED Decision to Admit Stat Ordered Studies 04/25/22 19:44 CT head/brain wo con Stat CT OF THE HEAD WITHOUT CONTRAST CLINICAL HISTORY: recurrent seizures COMPARISON STUDY: No previous studies for comparison. CT DOSE: 537.48 mGy.cm TECHNIQUE: Helical axial images of the head were obtained without IV contrast. Automated exposure control was utilized for the study. A dose lowering technique was utilized adhering to the principles of ALARA. FINDINGS: No acute intracranial hemorrhage, midline shift or mass effect is present. The ventricular system is unremarkable. The basal cisterns are patent. No extra-axial collections are present. There are no findings to suggest acute dural sinus thrombosis or acute territorial infarct. No significant calvarial abnormalities are present. Small amount of secretions within visualized portions of the right maxillary sinus. There is moderate ethmoid sinus mucosal thickening. IMPRESSION: No acute intracranial findings. Hospital Course (1) Alcohol use disorder: Eze Lyle is a 67-year-old male with a past medical history of seizure disorder diagnosed 2 years ago and alcohol use disorder who presented due to seizures. Pt left AMA. Seizures With a history of seizure disorder diagnosed 2 years ago Unclear cause for these recent episodes, though certainly alcohol withdrawal and/or intake could be contributors Patient takes Keppra 750 mg p.o. twice daily at home - No further seizure activity since episode in the ED yesterday evening Received Keppra 1000 mg IV x1 in ED; no further seizure activity throughout admission Seizure precautions Keppra dose increased to 1000 mg p.o. twice daily; will plan to continue this dose upon discharge. Prescription sent to pharmacy, called pt and he is aware of plan. He will f/u with PCP and neurology. Alcohol use disorder concern for possible alcohol withdrawal Patient stating that before his first seizure yesterday his last drink had be en about 8 or 9 days ago; seizure more likely related to seizure disorder Patient did admit to further alcohol intake after the first seizure Ethyl alcohol level at 11.2 on admission AWSS protocol; AWSS prior to discharge of 5 Banana bag received - continue thiamine and folate upon discharge B12 and folate wnl Equivocal lyme titre Equivocal Lyme IgM testing on admission Western blot now pending for confirmation Patient does not recall particular tick bites but does live in [place] Less likely that Lyme disease would have been asymptomatic prior to affecting him neurologically; will follow up Western Blot and if it's positive will treat DVT prophylaxis: Lovenox SQ Diet: Heart healthy CODE STATUS: Full (2) Seizure disorder: (3) Borderline results on serologic testing for Lyme disease: Total Time Total Time Spent Total Time Spent (In Minutes): <30 Discharge Plan Discharge Items Patient Disposition: Against Medical Advice Reason For Visit: SEIZURE Activity: Resume your previous activity Non-emergency contact: Primary Care Provider and Neurologist Follow-up/Referrals: PCP,NO [Physician] - Pending Studies at Discharge: Yes (Western Blot) Stand-Alone Forms: My tribr, Smoking Cessation Medications and DC Order Prescriptions: New levetiracetam [Keppra] 500 mg Tablet 1,000 mg PO BID 30 Days Qty: 120 0RF thiamine HCl (vitamin B1) 100 mg Tablet 100 mg PO QAM 30 Days Qty: 30 0RF folic acid 1 mg Tablet 1 mg PO QAM 30 Days Qty: 30 0RF Continued multivitamin Tablet 1 tab PO DAILY cyanocobalamin (vitamin B-12) [Vitamin B-12] 100 mcg Tablet 0 mcg PO DAILY metoprolol tartrate [Lopressor] 50 mg Tablet 50 mg PO BID vitamin B complex Tablet 1 tab PO DAILY ezetimibe [Zetia] 10 mg Tablet 10 mg PO DAILY rosuvastatin [Crestor] 20 mg Tablet 20 mg PO DAILY duloxetine [Cymbalta] 60 mg Capsule,Delayed Release(Dr/Ec) 60 mg PO DAILY aspirin 81 mg Capsule 162 mg PO DAILY Discontinued levetiracetam [Keppra] 750 mg Tablet 750 mg PO BID Discharge Orders: Left Against Medical Advice (Routine); Ordered 04/27/22 Ordered By: Vivian Frost Admission Data Admit Date/Time: 04/25/22 23:14 Attending Provider: Yovanny Weller Admit Provider: Mark Acosta Primary Care Provider: Jan Watts Other Providers: Sandra Robles Supervising Physician Co-Signing Physician Notes Chart reviewed, case discussed with Dr. Frost extensively. Was going to be seeing patient shortly, and given chart review as well as discussion with Dr. Frost, anticipated discharge to homeand shortly before we were going to be heading to the patient's room, I was informed that he left against advice. Seizuressuspect baseline seizure disorder exacerbated by alcohol useagree with increase in Keppra, close outpatient follow-up with his primary neurologist Alcohol abusewould benefit from cessation, continue thiamine and folate Equivocal Lymefollow-up on bands, treat if true positive on band testing
[2022-04-28 23:27] LABS: 18KDIGG Band NON-REACTIVE; 23KDIGG Band NON-REACTIVE; 23KDIGM Band NON-REACTIVE; 28KDIGG Band NON-REACTIVE; 30KDIGG Band NON-REACTIVE; 39KDIGG Band NON-REACTIVE; 39KDIGM Band NON-REACTIVE; 41KDIGG Band NON-REACTIVE; 41KDIGM Band REACTIVE; 45KDIGG Band NON-REACTIVE; 58KDIGG Band NON-REACTIVE; 66KDIGG Band NON-REACTIVE; 93KDIGG Band NON-REACTIVE; Lyme Antibodies, WB IgG NEGATIVE (NEGATIVE); Lyme Antibodies, WB IgM NEGATIVE (NEGATIVE)
[2022-04-29 08:02] LABS: Marijuana Quant, GCMS Urine 34 ng/mL (<5)
== END 2022-04-27 17:21 | disposition left against medical advice (07) | DRG 101 ==
LOC: ED 18:56 → 4W 23:14 → SUATTDRO 23:14 → 4W 04-26 01:20